=== PATIENT | female | born 1970 ===

== ENCOUNTER 2024-04-07 15:11 | Outpatient (CLI) | payer BC, SELFPAY ==
--- NOTE | ~2024-04-07 | MR_ITS ---
EXAMINATION: MR shoulder RT wo con DATE: 04/07/2024 15:59 INDICATION: Right shoulder pain TECHNIQUE: Magnetic resonance imaging (MRI) of the right shoulder was performed without intravenous c ontrast. Sequences included axial PD-weighted FS FSE, coronal oblique PD-weighted FS FSE, coronal obl ique T2-weighted FS FSE, sagittal PD-weighted FS FSE, and sagittal T1-weighted SE. COMPARISON: None. FINDINGS: Coracoacromial arch: The acromion undersurface is curved in morphology (type II). The coracoacromial ligament is normal. M ild acromioclavicular osteoarthritis. Rotator cuff: Moderate to severe supraspinatus and infraspinatus tendinopathy. There is a full-thickness tear of th e supraspinatus tendon which measures 1.6 cm AP as well as medial to lateral centered over the apex o f the humeral head. There is attenuated and frayed appearing residual tendon material attached to the greater tuberosity with the tear occurring approximately 1.5 cm from the footplate. There is partial thickness tear of the supraspinatus tendon anterior to the full-thickness tear defect where it appea rs significantly attenuated and frayed appearance. There appear to be a suture anchor tracks along th e lateral margin of the greater tuberosity which suggests that this represents a recurrent tear of th e previously repaired rotator cuff tear. The teres minor tendon is normal. Mild to moderate subscapul cheryl tendinopathy without discrete tear. There is medial retraction and mild to moderate fatty atroph y of the supraspinatus muscle belly. There is moderate fatty atrophy of the infraspinatus muscle vo y. Biceps tendon, glenoid labrum and glenohumeral cartilage: Long head of the biceps tendon is normal. Regular appearing degenerative tearing of the anterosuperio r to posterior glenoid labrum. There is thickening and mild amorphous increased signal of the anteroi nferior glenoid labrum suggesting additional degeneration. There is partial thickness chondral ulcera tion with some surface regularity at the apex of the humeral head underlying the rotator cuff tear de fect. Glenoid cartilage appears relatively preserved although there is some mild subarticular edema-l catherine signal change along the inferior margin of the glenoid. Fluid: Small glenohumeral joint effusion with fluid extending primarily into the deep subscapular recess. Th ere is additional fluid tracking into the subcoracoid bursa although this appears to arise from infer iorly at the axillary recess with thickening and frayed appearing at least partially torn anterior in ferior glenohumeral ligament. Small amount of fluid extends to the full-thickness rotator cuff tear i nto the subacromial/subdeltoid bursa. No loose osteochondral bodies identified. Bones: There is mild marrow edema at the lateral aspect of the humeral head primarily underlying the greater tuberosity footplate of the torn rotator cuff. No fracture or pathologic marrow replacing process. IMPRESSION: 1. Moderate to severe supraspinatus and infraspinatus tendinopathy with small full-thickness tear of the supraspinatus tendon which may be recurrent tear with suggestion of change of prior rotator cuff tear at the greater tuberosity. Correlate with surgical history. 2. Mild glenohumeral osteoarthritis with diffuse degenerative tearing of the glenoid labrum. 3. Likely partial tear of the anterior inferior glenohumeral ligament. Reviewed, dictated and finalized at location B. IMPRESSION: 1. Moderate to severe supraspinatus and infraspinatus tendinopathy with small f ull-thickness tear of the supraspinatus tendon which may be recurrent tear with suggestion of change of prior rotator cuff tear at the greater tuberosity. Cor relate with surgical history. 2. Mild glenohumeral osteoarthritis with diffuse degene
== END 2024-04-07 15:12 ==
PROVIDERS: PCP Physician Assistant; Visit Provider Physician Assistant
DX: M19.011 Primary osteoarthritis, right shoulder (principal)
CPT/HCPCS: 73221